=== PATIENT | male | born 1970 ===

== ENCOUNTER 2016-10-05 13:00 | Emergency (ER) | payer SELFPAY ==
[2016-10-05 14:04] VITALS: BP 140/84
--- NOTE | 2016-10-05 15:04 | RAD ---
HISTORY: Left shoulder pain COMPARISONS: None VIEWS: 3, Frontal internal rotation, external rotation, and outlet views of the left shoulder FINDINGS: BONE DENSITY: Normal. BONES: There is no displaced fracture. JOINTS: There is no arthropathy. ALIGNMENT: There is no dislocation. SOFT TISSUES: There is soft tissue calcification along the greater tuberosity. OTHER FINDINGS: None. IMPRESSION: SOFT TISSUE CALCIFICATION ALONG THE GREATER TUBEROSITY SUGGESTIVE OF A CALCIFIC TENDINOPATHY. NO ACUTE OSSEOUS INJURY. IF SYMPTOMS PERSIST, RECOMMEND REPEAT IMAGING.
--- NOTE | 2016-10-05 15:06 | UC ---
Shoulder Pain HPI - HPI Summary HPI Summary: LEFT SHOULDER PAIN X 2 WEEK SEVER FOR THE PAST 2 DAYS , NO KNOW INJURY BUT HAS BEEN DOING LOTS OF YARD WORK - History of Current Complaint Chief Complaint: UCUpperExtremity Stated Complaint: LEFT SHOULDER PAIN Time Seen by Provider: 10/05/16 14:42 Hx Obtained From: Patient Onset/Duration: Gradual Onset, Lasting Weeks - 2, Still Present, Worse Since - PAST 2 DAYS Timing: Constant Severity Initially: Moderate Severity Currently: Severe Location Of Pain: Is Discrete @ - LEFT SHOULDER Character: Throbbing Aggravating Factor(s): Movement, Lifting, Flexion, Extension, Internal Rotation , External Rotation, Abduction Alleviating Factor(s): Rest, Ice Associated Signs And Symptoms: Positive: Weakness. Negative: Swelling, Redness , Bruising, Fever, Numbness/Tingling - Allergies/Home Medications Allergies/Adverse Reactions: Allergies Allergy/AdvReac Type Severity Reaction Status Date / Time No Known Allergies Allergy Verified 10/05/16 14:04 PMH/Surg Hx/FS Hx/Imm Hx Cardiovascular History Of: Reports: Hypertension - no BP meds - Surgical History Surgical History: None - Family History Known Family History: Positive: Hypertension - Social History Alcohol Use: None Substance Use Type: None Smoking Status (MU): Never Smoked Tobacco - Immunization History Most Recent Tetanus Shot: 2006 Review of Systems Constitutional: Negative Skin: Negative Eyes: Negative ENT: Negative Respiratory: Negative Musculoskeletal: Other: - LEFT SHOULDER PAIN All Other Systems Reviewed And Are Negative: Yes Physical Exam Triage Information Reviewed: Yes Appearance: Well-Appearing, No Pain Distress, Well-Nourished Vital Signs: Initial Vital Signs Temp 97.4 F 10/05/16 14:01 Pulse 60 10/05/16 14:01 Resp 14 10/05/16 14:01 BP 140/84 10/05/16 14:01 Pulse Ox 99 10/05/16 14:01 Vital Signs Reviewed: Yes Eye Exam: Normal Eyes: Positive: Conjunctiva Clear ENT: Positive: Normal ENT inspection, Hearing grossly normal, Pharynx normal Neck: Positive: Supple, Nontender, No Lymphadenopathy Respiratory: Positive: Chest non-tender, Lungs clear, Normal breath sounds Cardiovascular: Positive: RRR, No Murmur, Pulses Normal Musculoskeletal: Positive: Other: - LEFT SHOULDER : + TENDERENSS, NO SWELLING, NO ERYTHEMA, SEVER PAIN ON ABDUCTION AND FLEXION Shoulder Course/Dx - Differential Dx/Diagnosis Provider Diagnoses: CALCIFIC TENDONITIS Discharge - Discharge Plan Condition: Stable Disposition: HOME Prescriptions: HYDROcodone/ACETAMIN 5-325 MG* [[place] 5-325 TAB*] 1 tab PO Q6H PRN #15 tab MDD 4 PRN Reason: Pain Patient Education Materials: Calcific Tendinitis (ED) Forms: *Work Release Referrals: No Primary Care Phys,NOPCP [Primary Care Provider] - 7 Days
== END 2016-10-05 15:18 | disposition home or self-care (01) ==
LOC: UCCORT 13:00
DX: M75.32 Calcific tendinitis of left shoulder (principal); I10 Essential (primary) hypertension
CPT/HCPCS: 99203; G0463

== ENCOUNTER 2017-06-06 16:02 | Emergency (ER) | payer SELFPAY ==
[2017-06-06 16:19] VITALS: BP 153/97
--- NOTE | 2017-06-06 17:15 | ED ---
Upper Extremity Pain - HPI Summary HPI Summary: 47 yr old with pain in left shoulder. Onset one week ago when he fell and landed on his left elbow, jamming his left shoulder. Pain is 6/10, radiates from shoulder into lateral upper arm. Denies numbness or weakness. he has no other complaints. Denies other injuries. - History of Current Complaint Chief Complaint: UCUpperExtremity Stated Complaint: LEFT SHOULDER INJURY Time Seen by Provider: 06/06/17 16:50 - Allergies/Home Medications Allergies/Adverse Reactions: Allergies Allergy/AdvReac Type Severity Reaction Status Date / Time No Known Allergies Allergy Verified 06/06/17 16:11 Home Medications: Home Medications Lisinopril TAB* [Prinivil TAB 5 MG*] 2.5 mg DAILY 06/06/17 [History Confirmed ] PMH/Surg Hx/FS Hx/Imm Hx Cardiovascular History: Reports: Hx Hypertension Respiratory History: Denies: Other Respiratory Problems/Disorders - DENIES PRIOR HX - Surgical History Hx Anesthesia Reactions: No Infectious Disease History: No Infectious Disease History: Denies: Traveled Outside the [place] in Last 30 Days - Family History Known Family History: Positive: Hypertension - Social History Alcohol Use: Rare Substance Use Type: Reports: None Hx Tobacco Use: No Smoking Status (MU): Never Smoked Tobacco Review of Systems Constitutional: Negative Positive: Other - left shoulder pain Positive: Anxious All Other Systems Reviewed And Are Negative: Yes Physical Exam Triage Information Reviewed: Yes Vital Signs On Initial Exam: Initial Vitals Temp Pulse Resp BP Pulse Ox 99.1 F 92 18 153/97 97 06/06/17 16:12 06/06/17 16:12 06/06/17 16:12 06/06/17 16:12 06/06/17 16:12 Vital Signs Reviewed: Yes Appearance: Positive: Well-Appearing Skin: Positive: Warm, Skin Color Reflects Adequate Perfusion Head/Face: Positive: Normal Head/Face Inspection Eyes: Positive: EOMI Neck: Positive: Supple, Nontender Respiratory/Lung Sounds: Positive: Clear to Auscultation, Breath Sounds Present Cardiovascular: Positive: Pulses are Symmetrical in both Upper and Lower Extremities Musculoskeletal: Positive: Other - tender over the proximal left humerous. Non tender over the clavicle. non tender over the left elbow. He has normal neuro vasculature in the left hand. Neurological: Positive: Sensory/Motor Intact - except left arm which is limited due to pain, Alert, Oriented to Person Place, Time, CN Intact II-III Psychiatric: Positive: Normal - [place] Coma Scale Best Eye Response: 4 - Spontaneous Best Motor Response: 6 - Obeys Commands Best Verbal Response: 5 - Oriented Diagnostics - Vital Signs Vital Signs Temp Pulse Resp BP Pulse Ox 06/06/17 16:12 99.1 F 92 18 153/97 97 - Laboratory Lab Statement: Any lab studies that have been ordered have been reviewed, and results considered in the medical decision making process. - Radiology left shoulder Xray Interpretation: Positive (See Comments) Radiology Interpretation Completed By: Radiologist Course/Dx - Course Course Of Treatment: 47 yr old male with left shoulder pain after wall, suspect rotator cuff injury. Plan referral to ortho. sling for comfort. - Diagnoses Provider Diagnoses: Rotator cuff injury, Hypertension Discharge - Discharge Plan Condition: Good Disposition: HOME Prescriptions: Ibuprofen TAB* [Motrin TAB* 600 MG] 600 mg PO Q6H PRN #20 tab PRN Reason: Pain Patient Education Materials: Rotator Cuff Injury (ED), Hypertension (ED) Referrals: No Primary Care Phys,NOPCP [Primary Care Provider] - Jamie Rothman MD [Medical Doctor] - 4 Days
--- NOTE | 2017-06-06 17:30 | RAD ---
HISTORY: Left shoulder pain COMPARISONS: None VIEWS: 4, Frontal internal rotation, external rotation, outlet, and axillary views of the left shoulder FINDINGS: BONE DENSITY: Normal. BONES: There is no displaced fracture. JOINTS: There is no arthropathy. ALIGNMENT: There is no dislocation. SOFT TISSUES: There is soft tissue calcification along the proximal humerus OTHER FINDINGS: None. IMPRESSION: SOFT TISSUE CALCIFICATIONS SUGGESTIVE OF A CALCIFIC TENDINOPATHY. NO ACUTE OSSEOUS INJURY. IF SYMPTOMS PERSIST, RECOMMEND REPEAT IMAGING
== END 2017-06-06 17:52 | disposition home or self-care (01) ==
LOC: UCCORT 16:02
DX: S46.002A Unspecified injury of muscle(s) and tendon(s) of the rotator cuff of left shoulder, initial encounter (principal); W19.XXXA Unspecified fall, initial encounter; Y93.9 Activity, unspecified; Y92.9 Unspecified place or not applicable; Y99.9 Unspecified external cause status; I10 Essential (primary) hypertension
CPT/HCPCS: 99213; G0463